=== PATIENT | female | born 1975 | race Caucasian/White ===

== ENCOUNTER 2017-03-02 22:41 | Emergency (ER) | payer BC ==
[2017-03-03 00:42] VITALS: BP 114/71
--- NOTE | 2017-03-03 01:22 | EDM.PDOC ---
ED HPI GENERAL MEDICAL PROBLEM - General Chief Complaint: ENT Problem Stated Complaint: CAN'T TALK WELL/TIGHTNESS IN CHEST Time Seen by Provider: 03/03/17 01:07 Source of Information: Reports: Patient History Limitations: Reports: No Limitations - History of Present Illness INITIAL COMMENTS - FREE TEXT/NARRATIVE: History of present illness: [42-year-old female 3 weeks ago had been at a special needs camp and was having to use her voice a lot and [place] at the special needs children and she became hoarse. She was seen in the ER and given antibiotics and 10 mg per day of prednisone and that did not improve his mass effect seems like scaring worse over the last 3 weeks. Since then she's not been involved with a camp but still continues to have a hoarse voice and is 100% anything else we can do for her. She feels a tightness in her chest as well. He is nonsmoker no history of heart problems] Review of systems: As per history of present illness and below otherwise all systems reviewed and negative. Past medical history: As per history of present illness and as reviewed below otherwise noncontributory. Surgical history: As per history of present illness and as reviewed below otherwise noncontributory. Social history: No reported history of drug or alcohol abuse. Family history: As per history of present illness and as reviewed below otherwise noncontributory. Physical exam: HEENT: Atraumatic, normocephalic, pupils reactive, negative for conjunctival pallor or scleral icterus, mucous membranes moist, throat clear, neck supple, nontender, trachea midline. Lungs: Clear to auscultation, breath sounds equal bilaterally, chest nontender. Heart: S1S2, regular, negative for clicks, rubs, or JVD. Abdomen: Soft, nondistended, nontender. Negative for masses or hepatosplenomegaly. Negative for costovertebral tenderness. Pelvis: Stable nontender. Genitourinary: Deferred. Rectal: Deferred. Extremities: Atraumatic, negative for cords or calf pain. Neurovascular unremarkable. Neuro: Awake, alert, oriented. Cranial nerves II through XII unremarkable. Cerebellum unremarkable. Motor and sensory unremarkable throughout. Exam nonfocal. Diagnostics: [] Therapeutics: [] Impression: [Laryngitis] Plan: [I will place her on prednisone 50 mg daily for 5 days and see if that helps and then have her follow-up with her primary care doctor and if she doesn't improve a referral to ENT could be in order.] Definitive disposition and diagnosis as appropriate pending reevaluation and review of above. - Related Data Allergies Allergy/AdvReac Type Severity Reaction Status Date / Time erythromycin base Allergy Vomiting Verified 01/26/14 17:10 [Erythromycin Base] prochlorperazine edisylate Allergy Facial Verified 01/26/14 17:10 [From Compazine] Swelling prochlorperazine maleate Allergy Facial Verified 01/26/14 17:10 [From Compazine] Swelling Home Meds: Home Meds NK [No Known Home Meds] 01/26/14 [History] ED ROS ENT - Review of Systems Review Of Systems: ROS reveals no pertinent complaints other than HPI. ED EXAM, ENT - Physical Exam Exam: See Below Course - Vital Signs Last Recorded V/S: Last Vital Signs Temp 35.8 C 03/03/17 00:39 Pulse 55 L 03/03/17 00:39 Resp 18 03/03/17 00:39 BP 114/71 03/03/17 00:39 Pulse Ox 100 03/03/17 00:39 Departure - Departure Time of Disposition: 01:21 Disposition: Home, Self-Care 01 Condition: Good Clinical Impression: Laryngitis - Discharge Information Forms: ED Department Discharge, ED Summary Discharge Additional Instructions: As much as possible try not to use her voice or whisper at all for the next week or 2. Drink plenty of water so you stay well hydrated and hopefully with this high dose prednisone the problem will improve. If not he may need to see your doctor and establish care with a doctor who could refer you to an ENT doctor if they're unable to help you.
== END 2017-03-03 01:43 | disposition home or self-care (01) ==
LOC: JP.ED 22:41
DX: J04.0 Acute laryngitis (principal); Z88.1 Allergy status to other antibiotic agents; Z88.8 Allergy status to other drugs, medicaments and biological substances
CPT/HCPCS: 99283